=== PATIENT | female | born 1980 | race Two or more races ===

== ENCOUNTER → 2016-10-20 | Day surgery (SDC) | payer OTHER ==
[~2016-10-20] VITALS: Ht 167.6 cm; Wt 61.2 kg
[~2016-10-20] MED LIST: BIRTH CONTROL PILL PO; CITALOPRAM HBR40 M1 ORAL; MULTIVITAMINS1 EAC2 ORAL; ceFAZolin sod 1 GM in NS 55 ML IVPB ONE
[2016-10-20 09:07] VITALS: BP 112/74
[2016-10-20 09:24] LABS: MEAN CORPUSCULAR HEMOGLOBIN 31.4 PG (27.0-31.0); MEAN CORPUSCULAR HGB CONC 33.1 G/DL (32.0-36.0); MEAN CORPUSCULAR VOLUME 95 FL (80-99); MEAN PLATELET VOLUME 7.6 FL (6.5-10.1); PLATELET COUNT 230 K/UL (150-450); RED BLOOD COUNT 4.28 M/UL (4.20-5.40); RED CELL DISTRIBUTION WIDTH 11.8 % (11.6-14.8); WHITE BLOOD COUNT 10.2 K/UL (4.8-10.8)
[2016-10-20 09:31] LABS: INR 0.9 (0.9-1.1); PROTHROMBIN TIME 9.9 SEC (9.30-11.50)
[2016-10-20 09:37] LABS: ANION GAP 17 (5-15); CALCIUM 8.7 mg/dL (8.6-10.2); CARBON DIOXIDE 23 mEQ/L (20-30); CHLORIDE 102 mEQ/L (98-107); CREATININE 0.6 mg/dL (0.5-0.9); GLOMERULAR FILTRATION RATE > 60 mL/min (>60); HEMOLYSIS 0; POTASSIUM 3.8 mEQ/L (3.4-4.9); SODIUM 142 mEQ/L (135-145)
[2016-10-20 10:04] LABS: BAND NEUTROPHILS % (MANUAL) 0 % (0-8); BASOPHILS % (MANUAL) 0 % (0-2); EOSINOPHILS % (MANUAL) 0 % (0-3); LYMPHOCYTES % (MANUAL) 10 % (20-45); NEUTROPHILS % (MANUAL) 86 % (45-75); PLATELET ESTIMATE ADEQUATE; PLATELET MORPHOLOGY NORMAL; TOTAL CELLS COUNTED 100
--- NOTE | 2016-10-20 11:33 | Diagnostic Imaging Report ---
Indication: PREOP, pain Technique: 3 views left foot Comparison: none Findings: There is mild hallux valgus and bunion formation. No acute fractures. No dislocations. Joint spaces are preserved Impression: No acute process
--- NOTE | 2016-10-20 11:40 | Diagnostic Imaging Report ---
Indication: PREOP, pain Technique: 3 views right foot Comparison: none Findings: No acute fractures. No dislocations. And deviation of the fourth and fifth interphalangeal joints. There is pes cavus deformity Impression: No acute process. Findings as noted
== END | disposition home or self-care (01) ==
LOC: SUR 08:14
DX: M21.612 Bunion of left foot (principal); M20.12 Hallux valgus (acquired), left foot; Q66.7 Congenital pes cavus; Z53.09 Procedure and treatment not carried out because of other contraindication; R11.2 Nausea with vomiting, unspecified
CPT/HCPCS: 36415; 80048; 81025; 85007; 85025; 85610; 85730

== ENCOUNTER 2016-10-27 09:02 | Day surgery (SDC) | payer OTHER ==
[2016-10-27] VITALS (11 sets, daily range): BP systolic 118–126; BP diastolic 70–81
[~2016-10-27] VITALS: Ht 167.6 cm; Wt 61.2 kg
[~2016-10-27 09:02] MED LIST changes: -ceFAZolin sod 1 GM in NS 55 ML IVPB ONE
[2016-10-27] MEDS ORDERED: Sterile Water Irrig 1000ml IRRIG ONE (09:03)
[2016-10-27] MEDS ORDERED: Dexamethasone 4mg/ml vial ONE ×2 (09:03→09:35)
[2016-10-27] MEDS ORDERED: LR 1000ml ONE (09:03)
[2016-10-27] MEDS ORDERED: Propofol 10mg/ml 20ml IV ONE (09:03)
[2016-10-27] MEDS ORDERED: Midazolam 2mg/2ml Inj ONE (09:03)
[2016-10-27] MEDS ORDERED: Bupivacaine 0.5% Inj 30 ml vial INJ ONE (09:35)
[2016-10-27] MEDS ORDERED: Bacitracin Oint 15gm Tube TOPIC ONE (09:35)
[2016-10-27] MEDS ORDERED: Lidocaine 1% Plain 30 ml INJ ONE (09:35)
[2016-10-27] MEDS ORDERED: Bacitracin 50000 Units Vial ONE (09:35)
--- NOTE | 2016-10-27 09:53 | Pre-Procedure Note/Attestation ---
Pre-Procedure Note/Attestation Complete Prior to Procedure Planned Procedure: bilateral Procedure Narrative: Correction of painful bunion with osteotomy and screw fixation left foot . correction of bilateral 5th mallet toe with release of flexor tendon . Indications for Procedure Pre-Operative Diagnosis: left painful bunion . bilateral 5th mallet toe Attestation I attest that I discussed the nature of the procedure; its benefits; risks and complications; and alternatives (and the risks and benefits of such alternatives ), prior to the procedure, with the patient (or the patient's legal auto claim representative). I attest that, if there was a reasonable possibility of needing a blood transfusion, the patient (or the patient's legal auto claim representative) was given the [place] [employer] standardized written summary, pursuant to the [place] Blood Safety Act ([place] Health and Safety Code # 1645, as amended). I attest that I re-evaluated the patient just prior to the surgery and that there has been no change in the patient's H&P, except as documented below: CHUCK BARGER DPM Oct 27, 2016 09:53
--- NOTE | 2016-10-27 10:03 | Anethesia Preoperative Eval ---
Anesthesia Pre-op PMH/ROS General Date of Evaluation: Oct 27, 2016 Time of Evaluation: 09:56 Anesthesiologist: Ronn ASA Score: ASA 1 Mallampati Score Class I : Soft palate, uvula, fauces, pillars visible Class II: Soft palate, uvula, fauces visible Class III: Soft palate, base of uvula visible Class IV: Only hard plate visible Mallampati Classification: Class I Surgeon: Ashishountanja Diagnosis: L Foot Pain Surgical Procedure: L Bunionectomy Anesthesia History: none Family History: no anesthesia problems Allergies: Coded Allergies: No Known Allergies (Unverified , 10/19/16) Medications: see eMAR Past Medical History Gastrointestinal/Genitourinary: Reports: GERD Neurologic/Psychiatric: Reports: depression/anxiety Anesthesia Pre-op Phys. Exam Physician Exam Last Vital Signs Date Time Temp Pulse Resp B/P Pulse Ox O2 Delivery O2 Flow Rate FiO2 10/27/16 09:43 97.5 72 19 121/76 100 Room Air Constitutional: NAD Neurologic: CN 2-12 intact Cardiovascular: RRR Respiratory: CTA Gastrointestinal: S/NT/ND Airway Exam Mallampati Score: Class I MO: full ROM: full Teeth: intact Anesthesia Pre-op A/P Labs Urine Test Test 10/27/16 07:00 Urine HCG, Qualitative Negative Risk Assessment & Plan Assessment: ASA 1 Plan: GA, BIS Status Change Before Surgery: No Pre-Antibiotics Dru Gram Ancef IV Given Within 1 Hr of Incision: Yes Time Given: 10:06 Marek Brody MD Oct 27, 2016 10:03
[2016-10-27] MEDS ORDERED: LR 1000ml 1,000 ML IVLG SCH (10:26)
--- NOTE | 2016-10-27 10:26 | Immediate Post-Op Evaluation ---
Immediate Post-Op Evalulation Immediate Post-Op Evalulation Procedure: L Bunionectomy Date of Evaluation: Oct 27, 2016 Time of Evaluation: 11:54 IV Fluids: 500 LR Blood Products: 0 Estimated Blood Loss: 3 Urinary Output: 0 Blood Pressure Systolic: 117 Blood Pressure Diastolic: 72 Pulse Rate: 67 Respiratory Rate: 16 O2 Sat by Pulse Oximetry: 100 Temperature (Fahrenheit): 97.5 Pain Score (1-10): 1 Nausea: No Vomiting: No Complications 0 Patient Status: awake, reacts, patent, extubated, none Hydration Status: adequate Dru Gram Ancef IV Given Within 1 Hr of Incision: Yes Time Given: 10:06 aMrek Brody MD Oct 27, 2016 10:26
[2016-10-27] MEDS ORDERED: LORazepam Inj 2mg/ml 1ml IV PRN (10:30)
[2016-10-27] MEDS ORDERED: fentaNYL 100 mcg/2 mL IV PRN (10:30)
[2016-10-27] MEDS ORDERED: Oxycodone/Acetaminophen 5-325 ORAL PRN (10:30)
[2016-10-27] MEDS ORDERED: Ketorolac 60mg Inj IV PRN (10:30)
[2016-10-27] MEDS ORDERED: DiphenhydrAMINE 50mg/ml Inj IVP PRN (10:30)
[2016-10-27] MEDS ORDERED: Hydromorphone 0.5mg/0.5ml inj IVP PRN (10:30)
[2016-10-27] MEDS ORDERED: Norco 5mg/325mg tab ORAL PRN (10:30)
[2016-10-27] MEDS ORDERED: Meperidine 25mg/0.5ml Inj IV PRN (10:30)
[2016-10-27] MEDS ORDERED: Ketorolac 30mg Inj IV PRN (10:30)
[2016-10-27] MEDS ORDERED: Atropine Inj 1mg/10ml Syr IV PRN (10:30)
[2016-10-27] MEDS ORDERED: Norco 7.5mg/325mg tab ORAL PRN (10:30)
[2016-10-27] MEDS ORDERED: Midazolam 2mg/2ml Inj IVP PRN (10:30)
[2016-10-27] MEDS ORDERED: Metoclopramide 10mg/2ml Inj IVP PRN (10:30)
[2016-10-27] MEDS ORDERED: Betadine 10% Oint 15gm TOPIC ONE (10:55)
[2016-10-27] MEDS ORDERED: Betadine 4oz Bottle TOPIC ONE (11:06)
--- NOTE | 2016-10-27 11:35 | Brief Operative Note ---
Immediate Post Operative Note Operative Note Pre-op Diagnosis: left painful bunion . bilateral 5th mallet toe Procedure: correction of bunion with osteotomy and screw fixation . flexor tendon release bilateral 5th Post-op Diagnosis: same as pre op Post-op Diagnosis: same as pre-op Surgeon: chuck dupree dpm Anesthesiologist: zoraida Specimen: yes Complications: none Condition: stable Estimated Blood Loss: none Drains: none Tourniquet time: 67 Implant(s) used?: Yes CHUCK DUPREE DPM Oct 27, 2016 11:35
--- NOTE | 2016-10-27 11:43 | 48 Hour Post Anesthesia Eval ---
Post Anesthesia Evaluation Procedure: L Bunionectomy Date of Evaluation: Oct 27, 2016 Time of Evaluation: 14:16 Blood Pressure Systolic: 122 0: 73 Pulse Rate: 67 Respiratory Rate: 18 Temperature (Fahrenheit): 98.4 O2 Sat by Pulse Oximetry: 100 Airway: patent Nausea: No Vomiting: No Pain Intensity: 2 Cardiopulmonary Status: Stable Follow-up Care/Observations: 0 Post-Anesthesia Complications: 0 Follow-up care needed: ready to discharge Marek Brody MD Oct 27, 2016 11:43
--- NOTE | 2016-10-27 13:10 | Diagnostic Imaging Report ---
Indication: Post surgery. Pain in the left foot. Comparison: None Findings: 3 views of the left foot were obtained. The patient has had recent hallux surgery. There is a distal first metatarsal osteotomy with fixation screw noted and resection of the medial part of the first metatarsal head. Images is obscured by overlying bandage. Impression: Post bunionectomy and first metatarsal osteotomy.
--- NOTE | 2016-10-30 16:30 | Operative Note - Dictated ---
DATE OF OPERATION: 10/27/2016 FACILITY: [facility] SURGEON: Perry Friedman D.P.M. PREOPERATIVE DIAGNOSES: 1. Left foot painful bunion deformity. 2. Right foot mallet toe, fifth digit. 3. Left foot mallet toe, fifth digit. POSTOPERATIVE DIAGNOSES: 1. Left foot painful bunion deformity. 2. Right foot mallet toe, fifth digit. 3. Left foot mallet toe, fifth digit. PROCEDURE: 1. Left foot bunionectomy with osteotomy and screw fixation. 2. Release of the flexor tendon, bilateral , to reduce the mallet toe. 3. Application of forefoot cast to the left foot. ANESTHESIOLOGIST: Marek Brody M.D. HEMOSTASIS: Pneumatic ankle tourniquet set at 250 mmHg. ESTIMATE BLOOD LOSS: Less than 5 mL. MATERIAL USED: A 3.0, 22 mm cannulated Vilex screw, 4-0 Vicryl, 2-0 Vicryl, and 4-0 nylon were utilized. Injectable: A 20 mL consisting of 1:1 mixture of 0.25% Marcaine plain and 1% lidocaine was injected into the left and the right preoperatively in a Da Silva block fashion. About 16 mL was injected into the first MPJ of the left, 2 mL each of the fifth metatarsophalangeal joint, right and left. Postoperatively, the patient was injected with 8 mL mixture of 1:1, 0.25% plain Marcaine and 2 mL of 4 mg/mL dexamethasone, once again 6 mL was injected into the left MPJ and 1 mL each of the fifth IPJ joints. PATHOLOGY: Bone, which was resected from the left first metatarsal head, was sent to pathology for further study. DRESSING: Incision site was covered with Xeroform, Betadine ointment, 4 x 4, Kerlix, and a forefoot plastic cast was applied. COMPLICATIONS: None. CONDITION: Stable. Description of Procedure: The patient was brought into the operating room and was assisted onto the operating table in supine position. She was padded well to avoid area of excessive pressure. The patient was then given 1 g of Ancef before the start of surgery. A time-out was performed. Cotton padding and pneumatic 18-inch ankle tourniquet was then placed about the patient's right as well as the left ankle. Following IV sedation, a local anesthetic block was administered to the left foot using approximately 18 mL of 1:1 mixture of 0.25% plain Marcaine and 1% plain lidocaine. A 16 mL was injected to the first metatarsophalangeal joint and the rest was injected to the fifth MPJ. The foot was then scrubbed, prepped, and draped in the usual aseptic manner. Attention was directed to the left foot. An Esmarch bandage was utilized to exsanguinate the patient's left foot and the pneumatic ankle tourniquet was then inflated to 250 mmHg. Local anesthesia was checked by pinching the patient's skin using a rat-tooth clamp. The patient did react to this stimulus so she was injected with additional 3 mL of 1:1 mixture of lidocaine plain and Marcaine plain. The skin was pinched again and she did not react to this stimulus. A skin marking pen was then used to draw a planned incision site on the dorsal medial aspect of the first metatarsophalangeal joint on the left foot. A #15 blade was used to make approximately a 5 cm incision. A new #15 blade was used to continue sharp and blunt dissection, which was carried down to the level of the capsule of the joint with care taking to retract all vital neurovascular structures. Soft tissue was dissected to expose the head of the metatarsal. The #15 blade was then utilized to perform a lateral soft tissue release from the base of the left fifth proximal phalanx going plantarly. The lateral ligament of the sesamoid apparatus was also released and sesamoid was noticed to flew in better position. With all vital structures retracted and protected, a sagittal saw was utilized to cut the medial bony eminence. The bone was then passed from the operating site and sent to pathology for further studies. A modified Reverdin osteotomy was made at the first metatarsal head with a sagittal saw. The capital fragment was shifted laterally and the osteotomy was held in place with a premeasured K-wire going from proximal dorsal to lateral plantar. The depth was measured and countersink. The 20 mm 3-0 cannulated Vilex screw was then inserted into the dorsal proximal and plantar distal orientation. The K-wire was then removed. The sagittal saw and a rasp were then utilized to resect overhanging bone and smoothening of the sharp edges. Visual inspection was done. It should be noticed numerous osteophytes with cartilage degeneration of the head of the metatarsal was noticed as well as the changes in the bone. At this time, copious amount of irrigation with normal saline and bacitracin was used to flush the surgical site. The capsule was then closed using 4-0 Vicryl suture. Subcutaneous tissue was then closed using 4-0 nylon sutures. The skin was then closed using nonabsorbable 4-0 nylon suture. At this time, attention was directed to the fifth toe where a percutaneous incision was made approximately proximal to the IPJ joint. At this time, using 64-blade, the blade was inserted and downward motion, the flexor tendon was released. It was immediately noticed that the mallet toe was reduced dramatically to its normal position. The incision site was then copiously washed and a single suture of nonabsorbable 4-0 nylon was done. The surgical sites were then injected with approximately 8 mL of 1:1 mixture containing of 2 mL of 4 mg/mL dexamethasone and 6 mL of 0.25% plain Marcaine plain Marcaine. The incision was then covered with Xeroform, 4 x 4 gauze, Kerlix, and Coban. A forefoot plastering was then applied. The distal aspect of the toe was uncovered. Tourniquet was then deflated and the digit was observed for vascular sign of compromise. The toe was pink and had capillary refill less than 2 seconds. At this time, attention was then directed to the right foot and the Esmarch bandage was utilized for exsanguination of the right foot. At this time, attention was directed to the fifth toe where a plantar incision approximately less than 1 cm was made plantar to the DIPJ joint. A 64-blade was then utilized to insert and the flexor tendon was released. Then immediate correction of the right fifth mallet toe was noticed. A single suture was then utilized to close the skin. The surgical site then was injected with 1 mL of mixture of dexamethasone and plain Marcaine. The incision was then dressed using Xeroform, Betadine ointment, 4 x 4, Arturo, and . The ankle tourniquet was then deflated. Immediate hyperemia was noticed through digits 1 through 5 on the right. The toe was pink and capillary refill was less than 2 seconds. The patient tolerated the surgery and anesthesia well without any complications. She was then transferred to the postoperative care unit and states no pain. The patient reminded to take antibiotics, ibuprofen, and pain medication as directed. She was also instructed to keep the legs elevated and dressings clean, dry, and intact. Radiograph, crutches, and postoperative shoe ordered. The patient was able to partially weight bear on the left heel but on the right to minimize standing and ambulation for the next 24 hours. The patient is to be discharged once medically cleared by the anesthesiologist and follow up with Dr. Friedman in the next clinic. Perry Friedman D.P.M. DR: JOSE RAUL JOB#: [id number] CC:
== END 2016-10-27 14:45 | disposition home or self-care (01) ==
LOC: SUR 09:02
DX: M21.612 Bunion of left foot (principal); M20.5X2 Other deformities of toe(s) (acquired), left foot; M20.5X1 Other deformities of toe(s) (acquired), right foot; K21.9 Gastro-esophageal reflux disease without esophagitis; F32.9 Major depressive disorder, single episode, unspecified; F41.9 Anxiety disorder, unspecified
CPT/HCPCS: 28232; 28296; 73630; 81025; C1713; J1100; J2001; J2250; J2405; J2704; J3490; J7120; 94003; 94150; A4246